=== PATIENT | male | born 2000 | race Hispanic/Latino ===

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

== ENCOUNTER 2021-10-09 15:03 | Emergency (ER) | payer BC ==
--- OUTSIDE RECORDS SUMMARY | 2021-10-09 15:06 | XMS REPORT | Continuity of Care Document ---
:2000 Author Organization [facility] t Address [address] [place] [address] [address] [place] [address] Care Team Providers Name Role Phone Savana MARTINEZ, Erasmo Ram Attending Clinician Manny Alford MD Attending Clinician MANNY ALFORD Attending Clinician Unavailable Payers Payer Name Policy Type Policy Number Effective Date Expiration Date S ource Problems Condition Condition Condition Status Onset Resolution Last Treating Co mments Source Name Details Category Date Date Treatment Clinician Date No known No known Disease Unive rs active active ity of problems problems [facility] Allergies, Adverse Reactions, Alerts Allergy Allergy Status Severity Reaction(s) Onset Inactive Treating Comm ents Source Name Type Date Date Clinician NO KNOWN Drug Active Univers ALLERGIE Class ity of S [facility] Social History Social Habit Start Date Stop Date Quantity Comments Source [facility] Exposure to SARS-CoV-2 Not sure Un [facility] [place] (event) [facility] Smoking Status Start Date Stop Date Source Unknown if ever smoked Universit y [facility] Medications Ordered Filled Start Stop Current Ordering Indication Dosage Frequency Signature Comments Components Source Medication Medication Date Date Medication? Clinician (SIG) Name Name iohexol No 100mL 100 mL, Unive rs (OMNIPAQUE 3-01 05-09 Intravenou it y of 350 23:58: 23:58 s, ONCE, 1 [place] BULK-100 00 :00 dose, Mon Medica l mL) 05/09/20 at [place] injection 1815, 100 mL Routine lansoprazol Yes [id number] 30mg Take 1 U nivers e 30 mg 05-09 capsule by ity of capsule 00:00: mouth [place] 00 daily. Medical Branch amoxicillin Yes 500mg 500 mg, Un jaiden (TRIMOX) 9-15 Oral, TID, ity o f capsule 500 13:00: First dose [place] mg 00 on [facility] 11/24/19 at Branch 0800, Until Discontinu ed, RODNEY
Re ason for Anti-Infec tive: Documented Infection< br>Documen tomas Infection Site: HEENT
D uration of Therapy: Other (see Comments) amoxicillin Yes [id number] 500mg Take 1 Univers 500 mg 9-15 capsule by ity of capsule 00:00: mouth 3 [place] 00 (three) Medical times Branch daily. ibuprofen Yes [id number] 800mg Take 1 U nivers 800 mg 9-15 tablet by ity of tablet 00:00: mouth [place] 00 every 8 Medical (eight) Branch hours as needed for Pain (scale 4-6) or Temp > 38.5 C. amoxicillin 2020- No [id number] 500mg Take 1 Univers 500 mg 9-15 - capsule by ity of capsule 00:00: 00:00 mouth 3 [place] 00 :00 (three) Medical times Branch daily. ibuprofen 2020- No [id number] 800mg Take 1 Univers 800 mg 9-15 03-01 tablet by ity of tablet 00:00: 00:00 mouth [place] 00 :00 every 8 Medical (eight) Branch hours as needed for Pain (scale 4-6) or Temp > 38.5 C. Vital Signs Vital Name Observation Time Observation Value Comments Source Systolic blood 2020-05-10 01:42:00 130 [facility]Hg[facility] Diastolic blood 2020-05-10 01:42:00 77 mm[Hg] [facility] Heart rate 2020-05-10 01:42:00 84 /min [facility] Body temperature 2020-05-10 01:42:00 37.17 Eri [facility] Respiratory rate 2020-05-10 01:42:00 18 /min [facility] Oxygen saturation in 2020-05-10 01:42:00 98 /min [facility] Arterial blood by [facility] Pulse oximetry Branch Body weight 2020-05-09 21:12:00 77.111 kg [facility] Systolic blood 2019-11-24 08:02:00 125 mm[Hg] Univer sity of pressure [facility] Diastolic blood 2019-11-24 08:02:00 72 mm[Hg] Unive rsity of pressure [facility] Heart rate 2019-11-24 08:02:00 102 /min [facility] Body temperature 2019-11-24 08:02:00 37.56 Eri [facility] Respiratory rate 2019-11-24 08:02:00 18 /min [facility] Body height 2019-11-24 08:02:00 182.9 cm [facility] Body weight 2019-11-24 08:02:00 74.844 kg [facility] BMI 2019-11-24 08:02:00 22.38 kg/m2 [facility] Oxygen saturation in 2019-11-24 08:02:00 100 /min [facility] blood by [facility] Pulse oximetry [place] Procedures Procedure Date / Time Performed Performing Clinician Ángel e CT ABDOMEN PELVIS W 2020-05-10 00:03:00 Stephani Lopez [facility] CONTRAST [facility] EXTRA TUBE LT. BLUE 2020-05-09 21:51:00 Mikel Wh[facility]aker [facility] EXTRA TUBE LT. GREEN 2020-05-09 21:51:00 Mikel [facility] LIPASE 2020-05-09 21:33:00 Stephani Lopez [facility] COMP. METABOLIC PANEL 2020-05-09 21:33:00 Stephani Lopez [facility] ([id number]) [facility] CBC WITH DIFF 2020-05-09 21:33:00 Stephani Lopez [facility] EXTRA TUBE LT. BLUE 2020-05-09 21:33:00 Stephani Lopez [facility] EXTRA TUBE LT. GREEN 2020-05-09 21:33:00 Setphani Lopez [facility] RAPID STREP SCREEN 2019-11-24 08:26:00 Manny Alford [facility] Medical Branch Encounters Start End Encounter Admission Attending Care Care Encounter Source Date/Time Date/Time Type Type Clinicians Facility Department ID 2020-05-09 2020-05-09 Emergency Savana, TRAUMA [id number] Univers 15:14:00 19:43:00 Erasmo MOSQUEDA [id number] ity [id number] [facility] [id number] [facility] 014 Branch 2020-05-09 2020-05-09 Emergency X [facility] ERT [id number] Univers 15:08:00 15:08:00 ity of [facility] 2019-11-24 2019-11-24 Emergency [facility] [id number] Univers 03:06:00 04:19:00 Joetoby Herrera [id number] ity of [place] [id number] [facility] [id number] [facility] 084 Branch 2019-11-24 2019-11-24 Emergency X [facility] ERT [id number] Univers 02:56:00 02:56:00 [facility] it[facility] Results Test Test Test Results Result Source Description Time Comments Comments CT ABDOMEN 2020-05 Mild diffuse small bowel wall University PELVIS W -02 thickening could represent of [place] CONTRAST 01:31:2 enteritis inappropriate M edical 5 clinical setting. Preliminary Branch Report Dictated by Resident: Adolfo Veloz MD., have reviewed this study and [facility] EXAM: CT ABDOMEN/PELVIS WITH CONTRAST HISTORY: ?Chronic/daily nausea/vomiting for 4 years. 3 episodes ofvomiting, including 2 bloody emesis. Denies abdominal pain or any othercomplaints. COMPARISON: None TECHNIQUE AND FINDINGS: Contiguous axial imaging from the level of the lungbases through the pubic symphysis was performed after the uncomplicatedadministration of intravenous Omnipaque contrast. Coronal and sagittalreconstructions were obtained. FINDINGS: LOWER THORAX: The lungs bases are clear. No cardiomegaly. LIVER: No focal hepatic lesions. No biliary ductal dilation. GALLBLADDER AND BILIARY TREE: No biliary ductal dilation. No gallbladderwall thickening. SPLEEN: No splenomegaly. PANCREAS: No ductal dilation or masses. ADRENAL GLANDS: No adrenal nodules. KIDNEYS: No hydronephrosis, stones, or masses. PERITONEUM AND RETROPERITONEUM: No free air or fluid. LYMPH NODES: No lymphadenopathy. GI TRACT: No bowel distention. Hyperdense material within stomach unclearif represent ingested hyperdense material versus blood clot in the settingof emesis. Diffuse small bowel wall thickening most prominently affects thejejunal loops (3:51). The normal appendix extends into the Morison pouch on(3:41). PELVIS/BLADDER: The bladder is physiologically distended. Normal prost[place]land. VESSELS: Normal caliber. BONES AND SOFT TISSUES: No suspicious lytic or sclerotic bony lesions. [facility], Radiant Results Inft User - 05/09/2020 7:32 PM CSTEXAM: CT ABDOMEN/PELVIS WITH CONTRASTHISTORY: Chronic/daily nausea/vomiting for 4 years. 3 episodes ofvomiting, including 2 bloody emesis. Denies abdominal pain or any othercomplaints. COMPARISON: NoneTECHNIQUE AND FINDINGS: Contiguous axial imaging from the level of the lungbases through the pubic symphysis was performed after the uncomplicatedadministration of intravenous Omnipaque contrast. Coronal and sagittalreconstructions were obtained.FINDINGS:LOWER THORAX: The lungs bases are clear. No cardiomegaly.LIVER: No focal hepatic lesions. No biliary ductal dilation.GALLBLADDER AND BILIARY TREE: No biliary ductal dilation. No gallbladderwall thickening.SPLEEN: No splenomegaly.PANCREAS: No ductal dilation or masses.ADRENAL GLANDS: No adrenal nodules.KIDNEYS: No hydronephrosis, stones, or masses.PERITONEUM AND RETROPERITONEUM: No free air or fluid.LYMPH NODES: No lymphadenopathy.GI TRACT: No bowel distention. Hyperdense material within stomach unclearif represent ingested hyperdense material versus blood clot in the settingof emesis. Diffuse small bowel wall thickening most prominently affects thejejunal loops (3:51). The normal appendix extends into the Morison pouch on(3:41).PELVIS/BLADDER: The bladder is physiologically distended. Normal prostategland.VESSELS: Normal caliber.BONES AND SOFT TISSUES: No suspicious lytic or sclerotic bony lesions.IMPRESSIONMild diffuse small bowel wall thickening could represent enteritis inappropriate clinical setting. Preliminary Report Dictated by Resident: Adam Betancourt, Adolfo Ceja MD., have reviewed this study and agree with theabove report. COMP. METABOLIC PANEL (00280) 2020-05-09 21:55:00 Test Item Value Reference Range Interpretation Comme nts NA (test code = 5103577164) 140 mmol/L 135-145 K (test code = 8320128253) 4.0 mmol/L 3.5-5 CL (test code = 7664310780) 102 mmol/L 98-108 CO2 TOTAL (test code = 0356737670) 28 mmol/L 23-31 AGAP (test code = 9863254413) 2-16 BUN (test code = 8797044501) 15 mg/dL 7-23 GLUCOSE (test code = 3274617740) 104 mg/dL 70-110 CREATININE (test code = 0.82 mg/dL 0.6-1.25 1742748981) TOTAL BILI (test code = 1.6 mg/dL 0.1-1.1 H 6684045931) CALCIUM (test code = 4733128447) 10.2 mg/dL 8.6-10.6 T PROTEIN (test code = 5909902507) 8.2 g/dL 6.3-8.2 ALBUMIN (test code = 4846790490) 5.0 g/dL 3.5-5 ALK PHOS (test code = 7293755626) 44 U/L 34-122 ALTv (test code = 1742-6) 22 U/L 5-50 AST(SGOT) (test code = 5684129610) 25 U/L 13-40 eGFR Calculation (Non- mL/min/1.73m2 [place]) (test code = 2285134962) eGFR Calculation ( mL/min/1.73m2 [place]) (test code = 4440212720) DIDI (test code = DIDI) Association of Glomerular Filtration Rate (GFR) and Staging of Kidney Disease* + +-------- + ------+| GFR (mL/min/1.73 m2) ?| With Kidney Damage ?| ?Without Kidney Damage+ +-- + +| ?>90 ?| ?Stage one ?| ? Normal ?+ +------- + -------+| ?60-89 ?| ?Stage two ?| ? Decreased GFR ? + +-------- + ------+| ?30-59 ?| ?Stage three ?| ? Stage three ? + +-------- + ------+| ?15-29 ?| ?Stage four ? | ? Stage four ?+ +------- + -------+| ?<15 (or dialysis) ? ?| ?Stage five ? | ? Stage five ?+ +------- + -------+ *Each stage assumes the associated GFR level has been in effect for at least three months. ?Stages 1 to 5, with or without kidney disease, indicate chronic kidney disease. Notes: Determination of stages one and two (with eGFR >59mL/min/1.73 m2) requires estimation of kidney damage for at least three months as defined by structural or functional abnormalities of the kidney, manifested by either:Pathological abnormalities or Markers of kidney damage (including abnormalities in the composition of the blood or urine or abnormalities in imaging tests). Lab Interpretation (test code = Abnormal 28602-4) [facility] 21:55:00 Test Item Value Reference Range Interpretation Comments LIPASE (test code = 0264024154) 30 U/L 0-220 Lab Interpretation (test code = Normal 24830-8) [facility] WITH [id number] 21:42:00 Test Item Value Reference Range Interpretation Comments WBC (test code = See_Comment H [Automated 7890-2) message] The system which generated this result transmit tomas reference range : 4.20 - 10.70 10*3/?L. The reference range was not used to interpret this result as normal/abnormal . RBC (test code = See_Comment [Automated 859-8) message] The system which generated this result transmit tomas reference range : 4.26 - 5.52 10*6/?L. The reference range was not used to interpret this result as normal/abnormal . HGB (test code = 16.1 g/dL 12.2-16.4 718-7) HCT (test code = 45.8 % 38.4-49.3 4544-3) MCV (test code = 90.3 fL 81.7-95.6 787-2) MCH (test code = 31.8 pg 26.1-32.7 785-6) MCHC (test code = 35.2 g/dL 31.2-35 H 786-4) RDW-SD (test code = 41.4 fL 38.5-51.6 44084-4) RDW-CV (test code = 12.5 % 12.1-15.4 788-0) PLT (test code = See_Comment [Automated 777-3) message] The system which generated this result transmit tomas reference range : 150 - 328 10*3/ ?L. The reference range was not u sed to interpret th is result as normal/abnormal . MPV (test code = 10.4 fL 9.8-13 84292-3) NRBC/100 WBC (test See_Comment [Automat ed code = 5464626247) message] The system which generated this result transmit tomas reference range : 0.0 - 10.0 /100 WBCs. The reference range was not used to interpret this result as normal/abnormal . NRBC x10^3 (test code <0.01 See_Comment [Auto mated = 5827997137) message] The system which generated this result transmit tomas reference range : 10*3/?L. The reference range was not used to interpret this result as normal/abnormal . GRAN MAT (NEUT) % 75.6 % (test code = 770-8) IMM GRAN % (test code 0.30 % = 4919305870) LYMPH % (test code = 16.1 % 736-9) MONO % (test code = 7.7 % 5905-5) EOS % (test code = 0.1 % 713-8) BASO % (test code = 0.2 % 706-2) GRAN MAT x10^3(ANC) 10.91 10*3/uL 1.99-6.95 H (test code = 7393557482) IMM GRAN x10^3 (test 0.04 10*3/uL 0-0.06 code = 9924991605) LYMPH x10^3 (test code 2.32 10*3/uL 1.09-3.23 = 731-0) MONO x10^3 (test code 1.11 10*3/uL 0.36-1.02 H = 742-7) EOS x10^3 (test code = <0.03 0.06-0.53 L 711-2) BASO x10^3 (test code 0.03 10*3/uL 0.01-0.09 = 704-7) Lab Interpretation Abnormal (test code = 55627-0) [facility] ST[facility] FOR GROUP [id number] 08:44:00 Test Item Value Reference Range Interpretation Comments Streptococcus pyogenes (group A) Positive Negative A antigen (test code = 85065-1) Lab Interpretation (test code = Abnormal 85293-1) [facility]"
[2021-10-09 18:18] VITALS: BP 151/74; TEMP 98.1; O2SAT 100
--- NOTE | 2021-10-11 09:38 | ER ---
Nurse's Notes [facility] Name: Domenico Barksdale Age: 21 yrs Sex: Male : 2000 Arrival Date: 10/09/2021 Time: 15:07 Bed 10 Private MD: Diagnosis: Presentation: 10/09 15:29 Chief complaint: Patient states: pt presented to ed reporting headaches, throat pain, garcia sinus congestion and ear aches x5 days. Coronavirus screen: Vaccine status: Patient reports being unvaccinated. Ebola Screen: Patient denies travel to an Ebola-affected area in the 21 days before illness onset. Initial Sepsis Screen: Does the patient meet any 2 criteria? No. Patient's initial sepsis screen is negative. Does the patient have a suspected source of infection? No. Patient's initial sepsis screen is negative. Risk Assessment: Do you want to hurt yourself or someone else? Patient reports no desire to harm self or others. Onset of symptoms was October 05, 2021. 15:29 Method Of Arrival: Ambulatory 15:29 Acuity: ANAYA 4 garcia Historical: - Allergies: 15:32 No Known Allergies; garcia - Home Meds: 15:32 None [Active]; garcia - PMHx: 15:32 None; garcia - PSHx: 15:32 None; garcia - Immunization history:: Adult Immunizations up to date. - Social history:: Smoking status: Reported history of juuling and/or vaping. Vital Signs: 15:29 BP 151 / 74; Pulse 73; Resp 19; Temp 98.1(T); Pulse Ox 100% on R/A; Weight 74.84 kg; garcia Height 6 ft. 0 in. (182.88 cm); 15:29 Body Mass Index 22.38 (74.84 kg, 182.88 cm) garcia ED Course: 15:07 Patient arrived in ED. am2 15:12 Ney Black PA is PHCP. cp 15:12 Piter Grossman MD is Attending Physician. cp 15:32 Triage completed. garcia Administered Medications: No medications were administered Outcome: 17:08 Patient left the ED. garcia Signatures: Ney Black PA PA cp Moreno, Amanda am2 Delicia Arellano RN RN garcia Corrections: (The following items were deleted from the chart) 15:32 15:29 Chief complaint: Patient states: pt presented to ed reporting headaches, throat garcia pain, sinus congestion x5 days garcia
--- NOTE | 2021-10-11 10:20 | EDPHYS ---
Physician Documentation [facility] Name: Domenico Barksdale Age: 21 yrs Sex: Male : 2000 Arrival Date: 10/09/2021 Time: 15:07 Bed 10 Private MD: ED Physician Piter Grossman HPI: 10/09 16:35 This 21 yrs old Male presents to ER via Ambulatory with complaints of tonsil cp blisters, Sore Throat. 16:35 The patient presents with sore throat. The patient describes throat pain as constant. cp Onset: The symptoms/episode began/occurred 5 day(s) ago. Associated signs and symptoms: Pertinent positives: earache, headache, sinus congestion, Pertinent negatives: fever, vomiting. Severity of symptoms: in the emergency department the symptoms are unchanged, despite home interventions. Historical: - Allergies: 15:32 No Known Allergies; garcia - Home Meds: 15:32 None [Active]; garcia - PMHx: 15:32 None; garcia - PSHx: 15:32 None; garcia - Immunization history:: Adult Immunizations up to date. - Social history:: Smoking status: Reported history of juuling and/or vaping. ROS: 16:40 Constitutional: Negative for body aches, chills, fever, poor PO intake. cp 16:40 Eyes: Negative for injury, pain, redness, and discharge. cp 16:40 ENT: Positive for ear pain, sinus congestion, sore throat, Negative for drainage from ear(s), difficulty swallowing, difficulty handling secretions. 16:40 Respiratory: Negative for cough, shortness of breath, wheezing. 16:40 Abdomen/GI: Negative for abdominal pain, nausea, vomiting, and diarrhea. 16:40 Neuro: Positive for headache, Negative for altered mental status, dizziness, weakness. 16:40 All other systems are negative. Exam: 16:45 Constitutional: The patient appears in no acute distress, alert, awake, non-toxic, well cp developed, well nourished. 16:45 Head/Face: Normocephalic, atraumatic. cp 16:45 Eyes: Periorbital structures: appear normal, Conjunctiva: normal, no exudate, no injection, Sclera: no appreciated abnormality, Lids and lashes: appear normal, bilaterally. 16:45 ENT: External ear(s): are unremarkable, Ear canal(s): are normal, clear, TM's: dullness, bilaterally, Nose: is normal, Mouth: Lips: moist, Oral mucosa: pink and intact, moist, Posterior pharynx: Airway: no evidence of obstruction, patent, Tonsils: bilaterally enlarged, with exudate, Uvula: midline, erythema, that is mild. 16:45 Neck: ROM/movement: is normal, is supple, no meningismus, no nuchal rigidity. 16:45 Chest/axilla: Inspection: normal. 16:45 Cardiovascular: Rate: normal. 16:45 Respiratory: the patient does not display signs of respiratory distress, Respirations: normal, no use of accessory muscles, no retractions, labored breathing, is not present, Breath sounds: are clear throughout, no decreased breath sounds, no stridor, no wheezing. 16:45 Abdomen/GI: Exam negative for discomfort, distension, guarding, Inspection: abdomen appears normal. Vital Signs: 15:29 BP 151 / 74; Pulse 73; Resp 19; Temp 98.1(T); Pulse Ox 100% on R/A; Weight 74.84 kg; garcia Height 6 ft. 0 in. (182.88 cm); 15:29 Body Mass Index 22.38 (74.84 kg, 182.88 cm) garcia MDM: 10/09 15:37 Order name: Strep cp Administered Medications: No medications were administered Disposition Summary: 10/09/21 17:08 Eloped Disposition: after being seen by provider garcia Reason: wait time garcia Addendum: 10/10/2021 20:25 Co-signature as Attending Physician, Piter Grossman MD. r n Signatures: Dispatcher [employer] EDPiter Holguin MD MD rn Ney Balck PA PA cp Au-Stager, Heather, RN RN garcia
== END 2021-10-09 17:08 | disposition left against medical advice (07) ==
LOC: ER 15:03
DX: Z53.21 Procedure and treatment not carried out due to patient leaving prior to being seen by health care provider (principal)
CPT/HCPCS: 87070; 87081; 99281

== ENCOUNTER 2024-04-06 09:08 | Emergency (ER) | payer BC, SELFPAY ==
--- OUTSIDE RECORDS SUMMARY | 2024-04-06 09:11 | XMS REPORT | Continuity of Care Document ---
Author Name Unknown Address [address] [place] [address] [address] [id number] [facility] thconnect Address [address] [facility]. 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 ON 9 [id number] 2023 00:00:00 Problems Condition Name Condition Details Condition Category Status Onset Date Resolution Date Last Treatment Date Treating Clinician Comments Source No known active problems No known active problems Disease [facility] Allergies, Adverse Reactions, Alerts Allergy Name Allergy Type Status Severity Reaction(s) Onset Date Inactive Date Treating Clinician Comments Source NO KNOWN ALLERGIE S Drug Class Active [facility] Social History Social Habit Start Date Stop Date Quantity Comments Source History of tobacco use Smokes tobacco daily Regina Lizama - External Sexual orientation Brigid Lizama - External Exposure to SARS-CoV-2 (event) Not sure [facility] History of Social function 2023-02-25 00:00:00 2023-02-25 00:00:00 Regina Land Sex Assigned At 2000 00:00:00 2000 00:00:00 Regina Land Smoking Status Start Date Stop Date Source Smokes tobacco daily 2023-02-25 00:00:00 Regina Land Unknown if ever smoked [facility] Medications Ordered Medication Name Filled Medication Name Start Date Stop Date Current Medication? Ordering Clinician Indication Dosage Frequency Signature (SIG) Comments Components Source Pantoprazol e Sodium 40 MG oral Tablet Delayed Response 2022-03 00:00: 00 Yes [id number] 40mg Take 1 tablet (40 mg total) by mouth daily. Regina mendes Sertraline HCl 25 MG oral Tablet 2022-03 00:00: 00 Yes [id number] 25mg Take 1 tablet (25 mg total) by mouth daily. Regina mendes Propranolol HCl 10 MG oral Tablet 2022-03 00:00: 00 Yes [id number] 10mg [id number] 3D Take 1 tablet (10 mg total) by mouth 3 times daily as needed. Regina mendes iohexol (OMNIPAQUE 350 BULK-100 mL) injection 100 mL 05-09 23:58: 00 05-09 23:58 :00 No 100mL 100 mL, Intravenou s, ONCE, 1 dose, 05/09/20 at 1815, Routine [facility] lansoprazol e 30 mg capsule 05-09 00:00: 00 Yes [id number] 30mg Take 1 capsule by mouth daily. [facility] amoxicillin (TRIMOX) capsule 500 mg 11-23 13:00: 00 Yes 500mg 500 mg, Oral, TID, First dose on Sat11/24/19 at 0800, Until Discontinu ed, RODNEY
Re ason for Anti-Infec tive: Documented Infection< br>Documen tomas Infection Site: HEENT
D uration of Therapy: Other (see Comments) [facility] amoxicillin 500 mg capsule 11-23 00:00: 00 Yes [id number] 500mg Take 1 capsule by mouth 3 (three) times daily. [facility] ibuprofen 800 mg tablet 11-23 00:00: 00 Yes [id number] 800mg Take 1 tablet by mouth every 8 (eight) hours as needed for Pain (scale 4-6) or Temp > 38.5 C. [facility] Vital Signs Vital Name Observation Time Observation Value Comments S ource Systolic blood pressure 2023-02-25 16:48:00 130 mm[Hg] Regina Fuentesybo ld - External Diastolic blood pressure 2023-02-25 16:48:00 80 mm[Hg] Regina Fuentesybo ld - External Heart rate 2023-02-25 16:48:00 108 /min Kel y ybold - External Body temperature 2023-02-25 16:48:00 36.83 Eri Regina Fuentesybold - External Respiratory rate 2023-02-25 16:48:00 18 /min Regina Fuentesybold - External Body height 2023-02-25 16:48:[address] Seybold - External Body weight 2023-02-25 16:48:[address] Seybold - External BMI 2023-02-25 16:48:00 21.09 kg/m2 Valeria lane Seybold - External Oxygen saturation in Arterial blood by Pulse oximetry 2023-02-25 16:48:00 100 /min Regina Mixono ld - External Systolic blood pressure 2020-05-10 01:42:00 130 mm[Hg] [facility] Diastolic blood pressure 2020-05-10 01:42:00 77 mm[Hg] [facility] Heart rate 2020-05-10 01:42:00 84 /min [facility] Body temperature 2020-05-10 01:42:00 37.17 Eri [facility] Respiratory rate 2020-05-10 01:42:00 18 /min [facility] Oxygen saturation in Arterial blood by Pulse oximetry 2020-05-10 01:42:00 98 /min [facility] Body weight 2020-05-09 21:12:00 77.111 kg [facility] Systolic blood pressure 2019-11-24 08:02:00 125 mm[Hg] [facility] Diastolic blood pressure 2019-11-24 08:02:00 72 mm[Hg] [facility] Heart rate 2019-11-24 08:02:00 102 /min [facility] Body temperature 2019-11-24 08:02:00 37.56 Eri [facility] Respiratory rate 2019-11-24 08:02:00 18 /min [facility] Body height 2019-11-24 08:02:00 182.9 cm [facility] Body weight 2019-11-24 08:02:00 74.844 kg [facility] BMI 2019-11-24 08:02:00 22.38 kg/m2 [facility] Oxygen saturation in Arterial blood by Pulse oximetry 2019-11-24 08:02:00 100 /min [facility] Procedures Procedure Date / Time Performed Performing Clinicia n Source CT ABDOMEN PELVIS W CONTRAST 2020-05-10 00:03:00 Stephani Lopez [facility] EXTRA TUBE LT. BLUE 2020-05-09 21:51:00 Mikel Whittaker [facility] EXTRA TUBE LT. GREEN 2020-05-09 21:51:00 Jerad Whittaker [facility] LIPASE 2020-05-09 21:33:00 Stephani Lopez [facility] COMP. METABOLIC PANEL ([id number]) 2020-05-09 21:33:00 Stephani Lopez [facility] CBC WITH DIFF 2020-05-09 21:33:00 Stephani Lopez [facility] EXTRA TUBE LT. BLUE 2020-05-09 21:33:00 Stephani Lopez [facility] EXTRA TUBE LT. GREEN 2020-05-09 21:33:00 Stephani Lopez [facility] RAPID STREP SCREEN FOR GROUP A 2019-11-24 08:26:00 Luzma Alford [facility] Encounters Start Date/Time End Date/Time Encounter Type Admission Type Attending Clinicians Care Facility Care Department Encounter ID Source 2023-03-25 13:00:00 2023-03-25 13:00:00 Outpatient SHAHAB ALVARADO [id number] Regina Lizama 2023-03-19 00:00:00 2023-03-19 00:00:00 Outpatient SHAHAB ALVARADO [id number] Regina Lizama 2023-02-25 10:30:00 2023-02-25 10:30:00 Outpatient SHAHAB ALVARADO [id number] Regina Lizama 2020-05-09 15:14:00 2020-05-09 19:43:00 Emergency [facility] [id number] [facility] 2020-05-09 15:08:00 2020-05-09 15:08:00 Emergency X [facility] ERT [id number] [facility] 2019-11-24 03:06:00 2019-11-24 04:19:00 Emergency Luzma Alford S [facility] [id number] [facility] 2019-11-24 02:56:00 2019-11-24 02:56:00 Emergency X LUZMA ALFORD [facility] ERT [id number] [facility] Results Test Description Test Time Test Comments Results Result Comments Source CT ABDOMEN PELVIS W CONTRAST 2020-05 01:31:2 5 Mild diffuse small bowel wal l thickening could represent enteritis inappropriate clinical setting. Preliminary Report Dictated by Resident: Adolfo Veloz MD., have reviewed this study and agree with theabove report. EXAM: CT ABDOMEN/PELVIS WITH CONTRAST HISTORY: [...] this study and agree [facility] the[facility] report. [facility] Test Item Value Reference Range Interpretation Comme nts LIPASE (test code = 1282329998) 30 U/L 0-220 Lab Interpretation (test cod e = 11401-1) Normal [facility] [id number] 21:42:00* Test Item Value Reference Range Interpretation Comme nts WBC (test code = 6690-2) See_Comment H [Automated message] The system which generated this result transmitted reference range: 4.20 - 10.70 10*3/?L. The reference range was not used to interpret this result as normal/abnormal. RBC (test code = 789-8) See_Comment [Automated message] The system which generated this result transmitted reference range: 4.26 - 5.52 10*6/?L. The reference range was not used to interpret this result as normal/abnormal. HGB (test code = 718-7) 16.1 g/dL 12.2-16.4 HCT (test code = 4544-3) 45.8 % 38.4-49.3 MCV (test code = 787-2) 90.3 fL 81.7-95.6 MCH (test code = 785-6) 31.8 pg 26.1-32.7 MCHC (test code = 786-4) 35.2 g/dL 31.2-35 H RDW-SD (test code = 80408-6) 41.4 fL 38.5-51.6 RDW-CV (test code = 788-0) 12.5 % 12.1-15.4 PLT (test code = 777-3) See_Comment [Automated message] The system which generated this result transmitted reference range: 150 - 328 10*3/?L. The reference range was not used to interpret this result as normal/abnormal. MPV (test code = 02084-2) 10.4 fL 9.8-13 NRBC/100 WBC (test code = 1113242360) See_Comment [Automated message] The system which generated this result transmitted reference range: 0.0 - 10.0 /100 WBCs. The reference range was not used to interpret this result as normal/abnormal. NRBC x10^3 (test code = 5294668298) <0.01 See_Comment [Automated message] The system which generated this result transmitted reference range: 10*3/?L. The reference range was not used to interpret this result as normal/abnormal. GRAN MAT (NEUT) % (test code = 770-8) 75.6 % IMM GRAN % (test code = 4721972540) 0.30 % LYMPH % (test code = 736-9) 16.1 % MONO % (test code = 5905-5) 7.7 % EOS % (test code = 713-8) 0.1 % BASO % (test code = 706-2) 0.2 % GRAN MAT x10^3(ANC) (test code = 9463864799) 10.91 10*3/uL 1.99-6.95 H IMM GRAN x10^3 (test code = 2520053013) 0.04 10*3/uL 0-0.06 LYMPH x10^3 (test code = 731-0) 2.32 10*3/uL 1.09-3.23 MONO x10^3 (test code = 742-7) 1.11 10*3/uL 0.36-1.02 H EOS x10^3 (test code = 711-2) <0.03 0.06-0.53 L BASO x10^3 (test code = 704-7) 0.03 10*3/uL 0.01-0.09 Lab Interpretation (test code = 24009-1) Abnormal [facility] FOR GROUP [id number] 08:44:00* Test Item Value Reference Range Interpretation Comme nts Streptococcus pyogenes (grou p A) antigen (test code = 08360-1) Positive Negative A Lab Interpretation (test cod e = 88752-2) Abnormal [facility]
--- NOTE | 2024-04-06 09:21 | EDPHYS ---
Physician Documentation [facility] Name: Domenico Barksdale Age: 23 yrs Sex: Male : 2000 Arrival Date: 04/06/2024 Time: 09:08 Bed DX4 Private MD: ED Physician Piter Grossman HPI: 04/06 09:54 This 23 yrs old Male presents to ER via Ambulatory with complaints of Rash, dr5 Ear Pain. 09:54 The patient's rash thought to be caused by. Onset: The symptoms/episode began/occurred dr5 acutely. Patient is a 23-year-old male with history of anxiety coming in with rash to torso that started yesterday. Patient reports he accidentally purchased the wrong detergent and has been using it. Patient denies shortness of breath, chest pain, nausea, vomiting, diarrhea. Patient also reports pain to his right ear and excessive drainage. Patient also reports rash around mouth.. Historical: - Allergies: 09: No Known Allergies; ss ROS: 09:54 Constitutional: as per hpi dr5 Exam: 09:54 Constitutional: This is a well developed, well nourished patient who is awake, alert, dr5 and in no acute distress. Head/Face: Normocephalic, atraumatic. Eyes: Pupils equal round and reactive to light, extra-ocular motions intact. Lids and lashes normal. Conjunctiva and sclera are non-icteric and not injected. Cornea within normal limits. Periorbital areas with no swelling, redness, or edema. 09:54 Chest/axilla: Normal chest wall appearance and motion. Nontender with no deformity. No lesions are appreciated. Cardiovascular: Regular rate and rhythm with a normal S1 and S2. Normal PMI, no JVD. No pulse deficits. Respiratory: Lungs have equal breath sounds bilaterally, clear to auscultation. No rales, rhonchi or wheezes noted. No increased work of breathing, no retractions or nasal flaring. Back: No spinal tenderness. No costovertebral tenderness. Full range of motion. 09:54 Skin: Patient also has macular / papular rash to torso with mild hives. Neuro: Awake and alert, GCS 15, oriented to person, place, time, and situation. Cranial nerves II-XII grossly intact. Motor strength 5/5 in all extremities. Sensory grossly intact. Cerebellar exam normal. Normal gait. 09:54 ENT: External ear(s): are unremarkable, Ear canal(s): purulent discharge, that is minimal, in the right canal, Examination of the other ear shows no obvious abnormality, Nose: is normal, Mouth: is normal, no abscess, no drooling, no injury, no acute changes, 09:54 Skin: Appearance: normal except for affected area, rash a mild rash is noted, rash can be described as impetigo, on the mouth, Vital Signs: 09:24 BP 140 / 82; Pulse 96; Resp 16; Temp 98.5(O); Pulse Ox 99% on R/A; Weight 65.77 kg; ss Pain 8/10; 09:24 Pain Scale: Adult ss MDM: 09:20 Medical Screening Exam initiated dr5 09:56 Differential diagnosis: impetigo, allergic reaction, Otitis media, otitis externa. Data dr5 reviewed: vital signs, nurses notes. Care significantly affected by the following chronic conditions: Anxiety. Care significantly affected by the following Social Determinants of Health: Poor access to healthcare and/or lack of insurance, Poor access to transportation, Problems related to employment. Counseling: I had a detailed discussion with the patient and/or guardian regarding the historical points, exam findings, and any diagnostic results supporting the discharge/admit diagnosis, the presence of at least one elevated blood pressure reading (>120/80) during this emergency department visit, the need for outpatient follow up, for definitive care, a environmental science program director, an ENT specialist, a family practitioner, to return to the emergency department if symptoms worsen or persist or if there are any questions or concerns that arise at home. ED course: Recommended patient take Benadryl as needed at home for her rash. Prescription for Pepcid given to help with itching. Mupirocin given for impetigo around mouth. Ciprodex given for right sided otitis externa. All likely due to viral infection versus new detergent causing allergic reaction. Patient is well-appearing on discharge. Recommended patient follow-up with dermatology and primary care as needed. All questions answered.. Administered Medications: No medications were administered Disposition: 17:23 Co-signature as Attending Physician, Piter Grossman MD I reviewed the patient's care rn provided by the Advanced Practice Provider and agree with the diagnosis and treatment plan. Disposition Summary: 04/06/24 09:20 Discharge Ordered Notes: Location: Home dr5 Condition: Stable dr5 Diagnosis - Rash and other nonspecific skin eruption dr5 - Unspecified otitis externa, right ear dr5 - Impetigo dr5 Followup: dr5 - With: Emergency Department - When: As needed - Reason: Worsening of condition Followup: dr5 - With: Private Physician - When: 1 - 2 days - Reason: Recheck today's complaints, Continuance of care, Re-evaluation by your physician Discharge Instructions: - Discharge Summary Sheet dr5 - Otitis Externa dr5 - Hives dr5 - Impetigo, Adult dr5 Forms: - Work release form dr5 - Medication Reconciliation Form dr5 - Antibiotic Education dr5 - Patient Portal Instructions dr5 - Leadership Thank You Letter dr5 Prescriptions: - mupirocin 2 % Topical ointment - apply 1 application TOPICAL route 2 times per day for 7 days; 1 application; dr5 Refills: 0, Product Selection Permitted - Medrol (Miguel) 4 mg Oral Tablets, Dose Pack - take 1 tablet ORAL route as directed - follow package instructions; 1 packet; dr5 Refills: 0, Product Selection Permitted - Pepcid 20 mg Oral tablet - take 1 tablet ORAL route once daily As needed; 10 tablet; Refills: 0, Product dr5 Selection Permitted - Ciprodex 0.3-0.1 % Otic drops, suspension - instill 4 drops OTIC route every 12 hours for 7 days , for ears ONLY; 60 drop; dr5 Refills: 0, Product Selection Permitted Signatures: Piter Grossman MD MD rn Blanchard, Shelby, RN RN ss Rhodes, Dustin, OIL FIELD OPERATOR-C OIL FIELD OPERATOR-Cdr5
--- NOTE | 2024-04-06 09:29 | ER ---
Nurse's Notes [facility] Name: Domenico Barksdale Age: 23 yrs Sex: Male : 2000 Arrival Date: 04/06/2024 Time: 09:08 Bed DX4 Private MD: Diagnosis: Rash and other nonspecific skin eruption;Unspecified otitis externa, right ear;Impetigo Presentation: 04/06 09:24 Chief complaint: Patient states: ear pain and rash. Coronavirus screen: Client denies ss travel out of the [place] in the last 14 days. Ebola Screen: Patient denies exposure to infectious person. Patient denies travel to an Ebola-affected area in the 21 days before illness onset. Initial Sepsis Screen: Does the patient meet any 2 criteria? No. Patient's initial sepsis screen is negative. Does the patient have a suspected source of infection? No. Patient's initial sepsis screen is negative. Risk Assessment: Do you want to hurt yourself or someone else? Patient reports no desire to harm self or others. Onset of symptoms is unknown. 09:24 Method Of Arrival: Ambulatory 09:24 Acuity: ANAYA 4 Historical: - Allergies: 09:27 No Known Allergies; Vital Signs: 09:24 BP 140 / 82; Pulse 96; Resp 16; Temp 98.5(O); Pulse Ox 99% on R/A; Weight 65.77 kg; ss Pain 8/10; 09:24 Pain Scale: Adult ss ED Course: 09:13 Patient arrived in ED. sj2 09:14 Scott Blair FNP-C is [facility]. dr5 09:14 Piter Grossman MD is Attending Physician. dr5 09:27 Triage completed. ss 09:27 Arm band placed on right wrist. ss 09:27 No provider procedures requiring assistance completed. Patient did not have IV access during this emergency room visit. Administered Medications: No medications were administered Outcome: 09:20 Discharge ordered by . dr5 09:27 Discharged to home ambulatory, ss 09:27 Condition: good 09:27 Discharge instructions given to patient, family, Instructed on discharge instructions, follow up and referral plans. medication usage, Demonstrated understanding of instructions, follow-up care, medications, Prescriptions given X 4, 09:28 Patient left the ED. Signatures: kOsana Zapata, RN RN ss Katheryn Richey sj2 Scott Blair, BONDING MOLDER-C BONDING MOLDER-Cdr5
[2024-04-06 11:14] VITALS: BP 140/82; TEMP 98.5; O2SAT 99
== END 2024-04-06 09:28 | disposition home or self-care (01) ==
LOC: ER 09:08
DX: L01.00 Impetigo, unspecified (principal); H60.91 Unspecified otitis externa, right ear
CPT/HCPCS: 99283

== ENCOUNTER 2024-05-05 09:50 | Emergency (ER) | payer SELFPAY ==
[2024-05-05 10:34] LABS: Absolute Basophils 0.1 K/uL (0-0.5); Absolute Eosinophils 0.2 K/uL (0-0.5); Absolute Lymphocytes (CBC) 2.3 K/uL (0.7-4.9); Absolute Neutrophil 3.7 K/uL (1.8-8.0); Basophils % 0.9 % (0-1.3); Eosinophils % 2.6 % (0-4.4); Hematocrit 44.8 % (39.6-49.0); Lymphocytes % 31.6 % (15.3-44.8); MCH 29.8 pg (27.0-35.0); MCHC 33.4 g/dL (32.0-36.0); MCV 89.2 fL (80-100); MPV 7.9 fL (7.6-11.3); Monocytes % 14.2 % (3.3-12.3); Neutrophils % 50.7 % (41.7-73.7); Nucleated Red Blood Cells % 0.1 % (0-0); Platelets 335 thou/uL (152-406); RBC Red Blood Cell Count 5.02 M/uL (4.33-5.43); Red Cell Distribution Width 13.4 % (12.1-15.2)
[2024-05-05 10:43] LABS: Albumin 4.1 g/dL (3.4-5.0); Albumin/Globulin Ratio 0.8 (1.1-1.8); Anion Gap 11.7 mEq/L (5.0-15.0); Bilirubin Total 0.9 mg/dL (0.2-1.0); Globulin 5.1 g/dL (2.3-3.5); Potassium 3.7 mEq/L (3.5-5.1); Protein, Total 9.2 g/dL (6.4-8.2)
--- NOTE | 2024-05-05 10:50 | EDPHYS ---
Physician Documentation [facility] Name: Domenico Barksdale Age: 23 yrs Sex: Male : 2000 Arrival Date: 05/05/2024 Time: 09:50 Bed DX3 Private MD: ED Physician Twin Rojas HPI: 05/05 10:34 This 23 yrs old Male presents to ER via Ambulatory with complaints of Bloody rt Stools. 10:34 Patient presents to the ED with blood when he wipes. He reports having brown stool but rt reports having some looser stools as of recent. He does report having history of hemorrhoids. Patient reports that this occurred after having anal sex with his . Patient reports a mild discomfort at the anal verge, denies any abdominal pain. Denies other acute complaints at this time, symptoms are mild in severity, no other aggravating or alleviating factors.. Historical: - Allergies: 10:03 No Known Allergies; iw - Home Meds: 10:04 propranolol 10 mg Oral tablet [Active]; iw - PMHx: 10:04 Anxiety; iw - Immunization history:: Adult Immunizations. - Infectious Disease History:: Denies. - Family history:: not pertinent. - Social history:: Smoking status: Patient denies any tobacco usage or history of. ROS: 10:34 Constitutional: Negative for fever, chills, and weight loss, Cardiovascular: Negative rt for chest pain, palpitations, and edema, Respiratory: Negative for shortness of breath, cough, wheezing, and pleuritic chest pain, Abdomen/GI: Negative for abdominal pain, nausea, vomiting, diarrhea, and constipation, MS/Extremity: Negative for injury and deformity, Skin: Negative for injury, rash, and discoloration, Neuro: Negative for headache, weakness, numbness, tingling, and seizure, Exam: 10:34 Constitutional: This is a well developed, well nourished patient who is awake, alert, rt and in no acute distress. Head/Face: Normocephalic, atraumatic. Chest/axilla: Normal chest wall appearance and motion. Nontender with no deformity. No lesions are appreciated. Cardiovascular: Regular rate and rhythm with a normal S1 and S2. No gallops, murmurs, or rubs. Normal PMI, no JVD. No pulse deficits. Respiratory: Lungs have equal breath sounds bilaterally, clear to auscultation and percussion. No rales, rhonchi or wheezes noted. No increased work of breathing, no retractions or nasal flaring. Skin: Warm, dry with normal turgor. Normal color with no rashes, no lesions, and no evidence of cellulitis. MS/ Extremity: Pulses equal, no cyanosis. Neurovascular intact. Full, normal range of motion. Neuro: Awake and alert, GCS 15, oriented to person, place, time, and situation. Cranial nerves II-XII grossly intact. Motor strength 5/5 in all extremities. Sensory grossly intact. Cerebellar exam normal. Normal gait. 10:34 Abdomen/GI: No abdominal tenderness, distention, small external hemorrhoid noted, Vital Signs: 10:00 BP 150 / 94; Pulse 96; Resp 18; Temp 97.6; Pulse Ox 100% on R/A; iw 10:53 BP 143 / 69; Pulse 81; Resp 17; Pulse Ox 100% ; Pain 0/10; ll1 10:53 Pain Scale: Adult ll1 MDM: 10:00 Medical Screening Exam initiated rt 13:06 Differential Diagnosis Hemorrhoid, anemia, anal fissure. Data reviewed: vital signs, rt nurses notes, lab test result(s). Test considered but Not performed: CT: No abdominal tenderness, physical exam is most consistent with external hemorrhoid. I do not believe that CT scan is indicated at this time.. Counseling: I had a detailed discussion with the patient and/or guardian regarding the historical points, exam findings, and any diagnostic results supporting the discharge/admit diagnosis, lab results, the need for outpatient follow up. 05/05 10:05 Order name: CBC with Diff; Complete Time: 10:44 rt 05/05 10:05 Order name: CMP; Complete Time: 10:44 rt Administered Medications: No medications were administered Disposition Summary: 05/05/24 10:49 Discharge Ordered Notes: Location: Home rt Problem: new rt Symptoms: have improved rt Condition: Stable rt Diagnosis - External hemorrhoid rt Followup: rt - With: Private Physician - When: 2 - 3 days - Reason: Discharge Instructions: - Discharge Summary Sheet rt - Hemorrhoids rt Forms: - Medication Reconciliation Form rt - Antibiotic Education rt - Prescription Opioid Use rt - Patient Portal Instructions rt - Leadership Thank You Letter rt Prescriptions: - Anusol-HC 2.5 % Topical cream with perineal applicator - apply 1 application RECTAL route 4 times per day as needed for hemorrhoids; 30 rt application; Refills: 0, Product Selection Permitted Signatures: Dispatcher [employer] Alejandra Harrington RN RN iw Lewis, Lynsay, RN RN ll1 Twin Rojas MD MD rt Corrections: (The following items were deleted from the chart) 10:05 10:03 Home Meds: None; [facility] 10:05 10:03 PMHx: None; [facility]
--- NOTE | 2024-05-05 10:50 | ER ---
Nurse's Notes [facility] Name: Domenico Barksdale Age: 23 yrs Sex: Male : 2000 Arrival Date: 05/05/2024 Time: 09:50 Bed DX3 Private MD: Diagnosis: External hemorrhoid Presentation: 05/05 10:00 Chief complaint: Patient states: 3 days ago there was blood in my stool , has been iw constipated and has hemorrhoids. Coronavirus screen: At this time, the client does not indicate any symptoms associated with coronavirus-19. Ebola Screen: No symptoms or risks identified at this time. Initial Sepsis Screen: Does the patient meet any 2 criteria? HR > 90 bpm. Does the patient have a suspected source of infection? No. Patient's initial sepsis screen is negative. Risk Assessment: Do you want to hurt yourself or someone else? Patient reports no desire to harm self or others. 10:00 Method Of Arrival: Ambulatory iw 10:00 Acuity: ANAYA 3 iw 10:53 Onset of symptoms was May 03, 2024. ll1 Historical: - Allergies: 10:03 No Known Allergies; iw - Home Meds: 10:04 propranolol 10 mg Oral tablet [Active]; iw - PMHx: 10:04 Anxiety; iw - Immunization history:: Adult Immunizations. - Infectious Disease History:: Denies. - Family history:: not pertinent. - Social history:: Smoking status: Patient denies any tobacco usage or history of. Screenin:28 [facility] ED Fall Risk Assessment (Adult) History of falling in the last 3 months, iw including since admission No falls in past 3 months (0 pts) Confusion or Disorientation No (0 pts) Intoxicated or Sedated No (0 pts) Impaired Gait No (0 pts) Mobility Assist Device Used No (0 pt) Altered Elimination No (0 pt) Score/Fall Risk Level 0 - 2 = Low Risk Oriented to surroundings, Maintained a safe environment. Abuse screen: Denies threats or abuse. Nutritional screening: No deficits noted. Tuberculosis screening: No symptoms or risk factors identified. Assessment: 10:24 General: Appears in no apparent distress. Behavior is anxious. iw 10:27 Pain:. Neuro: Level of Consciousness is awake, alert, obeys commands, Oriented to iw person, place, time, situation. Cardiovascular: Patient's skin is warm and dry. Respiratory: Respiratory effort is even, unlabored, Respiratory pattern is regular. GI: Reports rectal bleeding. Derm: Skin is intact, is healthy with good turgor. 10:52 General: Appears in no apparent distress. Behavior is calm, cooperative, appropriate ll1 for age. Pain: Denies pain. GI: Reports constipation, rectal bleeding. Vital Signs: 10:00 BP 150 / 94; Pulse 96; Resp 18; Temp 97.6; Pulse Ox 100% on R/A; iw 10:53 BP 143 / 69; Pulse 81; Resp 17; Pulse Ox 100% ; Pain 0/10; ll1 10:53 Pain Scale: Adult ll1 ED Course: 09:53 Patient arrived in ED. al6 09:55 Twin Rojas MD is Attending Physician. rt 10:02 Triage completed. iw 10:02 Arm band placed on. iw 10:15 Provided Education on: need for lab draw . iw 10:23 Alejandra Gaytan RN is Primary Nurse. iw 10:23 Initial lab(s) drawn, by me, sent to lab. Inserted saline lock: 24 gauge in right iw antecubital area, using aseptic technique. Blood collected. Flushed with 10 mL NS. 10:45 Patient has correct armband on for positive identification. iw 10:53 No provider procedures requiring assistance completed. IV discontinued, intact, ll1 bleeding controlled, No redness/swelling at site. Pressure dressing applied. Administered Medications: No medications were administered Medication: 10:28 VIS not applicable for this client. iw Outcome: 10:49 Discharge ordered by . rt 10:53 Discharged to home ambulatory, ll1 10:53 Condition: stable 10:53 Discharge instructions given to patient, Instructed on discharge instructions, follow up and referral plans. medication usage, Demonstrated understanding of instructions, follow-up care, medications, Prescriptions given X 1, 10:54 Patient left the ED. ll1 Signatures: Alejandra Gaytan RN RN iw Abelardo Leach RN RN ll1 Twin Rojas MD MD rt Aneta Lepe al6 Corrections: (The following items were deleted from the chart) 10:05 10:03 Home Meds: None; iw iw 10:05 10:03 PMHx: None; iw iw
[2024-05-05 10:59] VITALS: TEMP 97.6; O2SAT 100
[2024-05-05 11:01] VITALS: BP 143/69
== END 2024-05-05 10:54 | disposition home or self-care (01) ==
LOC: ER 09:50
DX: K64.4 Residual hemorrhoidal skin tags (principal)
CPT/HCPCS: 36415; 80053; 85025